=== PATIENT | female | born 1970 | race Caucasian/White ===

== ENCOUNTER 2018-05-27 04:35 | Inpatient (IN) ==
--- NOTE | 2018-05-27 03:24 | Internal Med History&Physical ---
<Guido Julio - Last Filed: 05/27/18 04:48> Internal Medicine - H&P: Meds Dulaglutide [Trulicity] 1.5 mg SQ 05/27/18 [History] Empagliflozin [Jardiance] 25 mg PO DAILY 05/27/18 [History] Ezetimibe/Simvastatin [Vytorin 10-40 mg Tablet] 1 tab PO DAILY 05/27/18 [History] Fenofibrate 160 mg DAILY 05/27/18 [History] Garlic [Daily Garlic Once-A-Day] 400 mg PO BID 05/27/18 [History] Glimepiride [Amaryl] 8 mg PO DAILY 05/27/18 [History] Insulin Glargine,Hum.rec.anlog [Lantus Solostar] 43 unit SQ HS 05/27/18 [History] Metformin HCl [Glucophage Xr] 750 mg PO TID 05/27/18 [History] Mv,Fe,Min/Lutein [A Thru Z Select Women's Tablet] 1 tab PO DAILY 05/27/18 [History] [place]-3/Dha/Epa/Fish Oil [Fish Oil 1,000 mg Softgel] 1 cap PO DAILY 05/27/18 [History] Allergy/AdvReac Type Severity Reaction Status Date / Time No Known Allergies Allergy Verified 05/27/18 02:34 All Systems PM: A 10-system review of systems was performed and is negative for pertinent fi ndings except as documented above in the HPI. - Constitutional Vitals: Temp Pulse Resp BP Pulse Ox 98.5 F 101 18 97/48 94 05/27/18 03:24 05/27/18 03:24 05/27/18 03:24 05/27/18 03:24 05/27/18 03:24 - Assessment and plan (1) Sepsis Current Visit: Yes Status: Acute (2) GAIL (acute kidney injury) Current Visit: Yes Status: Acute (3) Diabetes mellitus Current Visit: Yes Status: Acute (4) Pyelonephritis Current Visit: Yes Status: Acute (5) Left nephrolithiasis Current Visit: Yes Status: Acute (6) DVT prophylaxis Current Visit: Yes Status: Acute - Time Spent With Patient Total time spent is greater than 50% in coordination of care (as documented) at patient's floor/unit and/or counseling patient: - Attending Attestation Silvia Jamaal is a 47 year old woman with diabetes who presents to us on transfer from [facility] where she was taken to with complaint of left flank pain, chills, nausea, vomiting and malaise. There she was found hypotensive with a systolic at 80 with lactate level of 3.9 and WBC of ~17. She required 3L IVF resuscitation which improved her BP and lowered her lactate. CT imaging revealed a 1cm ureteral stone with obstructive hydronephrosis. UA showed 50-100wbc, +LE/nitrite. On my assessment she is laying comfortably in bed stating that she feels better and her pain has subsided. She confirms that the symptoms started about the night before last and progressively worsened. She denies dysuria but noticed her urine is more foul smelling. She acknowledges a history of UTIs but denies prior kidney stones. PMHx: Hyperlipidemia. hx. SHx: Denies smoking and illicit drug use. FHx: DM in mother. Review of systems: All systems reviewed and negative except as listed above in the HPI. Physical exam remarkable for well-developed white female, warm and supple skin, moist mucous membranes, supple neck with no lymphadenopathy, chest clear to auscultation bilaterally with no wheezes, rales or rhonchi, normal S1-S, abdomen non-distended, soft and mildly tender to palpation in the left flank without peritoneal reaction, no c/c/e on extremities, no focal deficits and awake/oriented 3, affect appropriate. Labs and CT report from outside hospital reviewed as noted. She will be admitted for severe sepsis due to urinary tract infection. Repeat comprehensive labs, BCx/UCx. IVF 125ml/hr for now. Upload CT images to radiology. Consult urology. Advise to stop vanc/piptazo started at [facility]. Will place on cefepime for now, going a little broader because of her severe septic presentation and poorly controlled diabetes comorbidity therefore warranting empiric Pseudomonas coverage at least for these initial 24hrs. Narrow accordingly per clinical amelioration and culture results. Insulin sliding scale and check A1C. Heparin Subq. Patient seen and examined by me on 05/27/18. IRISH BERNARDO. <Torie St - Last Filed: 05/27/18 09:19> Date of Encounter: 10/24/18 Time of Encounter: 03:24 Internal Medicine - H&P: HPI Chief complaint: Sepsis secondary to acute UTI and obstructing ureteral stone Admitted From: Hospital to Hospital Transfer History of present illness: Ms. Hinton is a 47 year old female with a history of diabetes mellitus who arrived at [facility] as a transfer from [facility]. She had presented there due to nausea, vomiting, chills, and left-sided pain that had been present since Friday morning. On arrival, she was noted to be hypotensive and received multiple fluid boluses, with some improvement in pressure. Initial workup performed at outside facility revealed multiple laboratory abnormalities, with significant findings as follows: WBC 17.28, creatinine 1.82, glucose 395, calcium 8.2, and lactic acid 3.9. Urinalysis was significant for 30 protein, >=1000 glucose, 50-100 WBCs, positive nitrite, small leukocyte esterase, and few epithelial cells. Patient was started empirically on antibiotic therapy with vancomycin and zosyn. CT abdomen/pelvis demonstrated a 1cm stone in the left ureter with obstructive hydronephrosis. She was transferred to [facility] for urology evaluation and continued management. On examination, patient is resting comfortably in bed and appears to be drifting to sleep. She reports pain that is dull and achy in the middle of her lower back. She rates her discomfort as 2/10 at this time, and says that her discomfort does improve with positional changes. She notes improvement in pain severity since receiving antibiotic therapy and fluid hydration at [facility]. She denies any exacerbating factors. She reports headaches associated with the onset of her pain and a sore throat secondary to repeated vomiting. She denies any dysuria or urinary urgency, but states that she has noticed increased urinary frequency since symptoms began. She denies any other complaints or concerns at this time. Past Med Surg Social Fam HX - Past Medical History Medical history: diabetes, hyperlipidemia, kidney stones Additional medical history: 1 seizure 14 years ago during child , never anymore and not on meds for it Psychiatric history: no psych history - Past Surgical History Surgical History: - Social History Smoking Status: Never smoker Smokeless Tobacco Status: No Alcohol use: none Drug use: none - Family History Mother Adopted: No Age: 74 Living Status: Cause of : 74 Hx Family Cardiac Disorders: (hyperlipdemia, stroke) Hx Family GI Disorders: Yes (perforated bowel) Hx Family Genitourinary Disorders: Yes (kidney failure) Hx Family Endocrine Disorder: Yes (diabetes) Hx Family HEENT Disorders: Yes (glaucoma) Father Adopted: No Living Status: Age at : 60 Hx Family Cardiac Disorders: Yes (cabg) Hx Family Cancer: Yes (skin cancer) All Systems PM: A 10-system review of systems was performed and is negative for pertinent findings except as documented above in the HPI. - Constitutional Vitals: Temp Pulse Resp BP Pulse Ox 98.5 F 105 18 97/48 94 05/27/18 02:39 05/27/18 02:39 05/27/18 02:39 05/27/18 02:39 05/27/18 02:39 Exam: GENERAL: Pleasant adult female lying in bed in no acute distress. She answers questions appropriately and is cooperative with exam. HEENT: Atraumatic and normocephalic. CARDIOVASCULAR: Regular rhythm with elevated heart rate. S1 and S2 present. No m urmurs, gallops, or rubs. RESPIRATORY: CTA bilaterally with no accessory muscle use noted. GASTROINTESTINAL: Active bowel sounds present x 4 quadrants. Abdomen is obese but not distended and soft to palpation. Patient expresses some discomfort with palpation secondary to repeated episodes of emesis. Left CVA tenderness present. EXTREMITIES: No clubbing, cyanosis, or edema present. NEUROLOGIC: A&O x3. No apparent focal deficits. Internal Med - H&P Results - Labs CBC & Chem 7: 05/27/18 04:32 05/27/18 04:32 - Assessment and plan (1) Sepsis Current Visit: Yes Status: Acute Assessment and plan: Patient met sepsis criteria during evaluation at [facility] due to hypotension, elevated WBC count of 17.28, and urinalysis consistent with UTI. She was also noted to have an elevated lactic acid of 3.9. She received extensive fluid hydration prior to transfer, with improvement in blood pressure. Repeat laboratory studies performed after arrival to [facility] demonstrate some improvement, with WBC count of 15.7 and lactic acid of 1.5. Suspect secondary to acute urinary tract infection. Plan is as follows: - Blood cultures - Continue IV fluid hydration at 125mL/hr - Discontinue vancomycin/zosyn - Cefepime 2000mg IVPB Q8H - Continued monitoring of vital signs and clinical status Qualifiers: Sepsis type: sepsis due to unspecified organism Qualified Code(s): A41.9 - Sepsis, unspecified organism (2) UTI (urinary tract infection) Current Visit: Yes Status: Acute Assessment and plan: Urinalysis completed at outside facility is highly suspicious for acute UTI. Considering patient's history of diabetes mellitus that appears to be poorly controlled, plan for antibiotic coverage to include Pseudomonas species. - Repeat urine culture - Cefepime 2000mg Q8H - Further antibiotic deescalation as appropriate pending urine cultures Qualifiers: Urinary tract infection type: acute pyelonephritis Qualified Code(s): N10 - Acute pyelonephritis (3) Left nephrolithiasis Current Visit: Yes Status: Acute (4) Diabetes mellitus Current Visit: Yes Status: Acute Assessment and plan: Patient reports having forgotten her PM insulin yesterday. She reports morning blood glucose readings around 150 on a regular basis. - Accuchecks Q6H while NPO - Low-dose corrective sliding scale insulin - Hemoglobin A1c - Anticipate further modifications to insulin regimen after patient resumes PO diet Qualifiers: Diabetes mellitus type: type 2 Diabetes mellitus buttermaker continuous churn insulin use: unspecified intermediate insulin use status Diabetes mellitus complication status: with unspecified complications Qualified Code(s): E11.8 - Type 2 diabetes mellitus with unspecified complications (5) DVT prophylaxis Current Visit: Yes Status: Acute Assessment and plan: - Heparin 5000units SQ Q8H - Time Spent With Patient Total time spent is greater than 50% in coordination of care (as documented) at patient's floor/unit and/or counseling patient:
[2018-05-27] MEDS: 0.9 % Sodium Chloride 1,000 ML IVC SCH ×3 (04:32→18:18)
[~2018-05-27 04:35] MED LIST: *HR* Dextrose 50 % in Water (Syg) 50 ML SYRINGE IVP PRN; *HR* OxyCODONE Immed Rel 5 MG TABLET PO PRN; Dextrose Gel 15 GM/37.5 ML TUBE PO PRN; Ondansetron ODT 4 MG TAB.RAPDIS SL PRN
[2018-05-27 04:51] LABS: Hematocrit 35.4 % (35.3-44.9); Hemoglobin 11.7 g/dL (11.5-15.4); Mean Corpuscular HGB Conc 33.1 g/dL (31.6-35.5); Mean Corpuscular Hemoglobin 28.3 pg (28.0-33.3); Mean Corpuscular Volume 85.5 fL (83.0-100.0); Platelet Count 172 K/mcL (140-400); Red Blood Count 4.14 M/mcL (3.82-4.97); Red Cell Distribution Width 14.7 % (11.5-14.5)
[2018-05-27 04:57] LABS: INR 1.5; Prothrombin Time 17.4 Seconds (9.4-12.1)
[2018-05-27] MEDS ORDERED: Naloxone 0.4 MG/ML INJ IVP PRN ×2 (04:59→16:33)
[2018-05-27 05:00] LABS: Activated Partial Thrombo Time 30.3 Seconds (26.0-36.0)
[2018-05-27 05:14] LABS: Albumin 3.3 g/dL (3.5-5.7); Albumin/Globulin Ratio 1.2 (1.1-2.2); Bilirubin,Direct 0.2 mg/dL (0.0-0.2); Bilirubin,Indirect 0.2 mg/dL (0.0-1.2); Bilirubin,Total 0.4 mg/dL (0.3-1.0); Calcium 8.5 mg/dL (8.6-10.3); Globulin 2.8 g/dL (2.4-3.5); Magnesium 1.6 mg/dL (1.6-2.6); Total Protein 6.1 g/dL (6.4-8.9)
[2018-05-27 05:16] LABS: Neutrophils # 15.7 K/mcL (1.6-8.9); Platelet Estimate Normal (Normal)
[2018-05-27] MEDS: Insulin LISPRO 300 UNITS/3 ML VIAL SQ SCH ×3 (05:52→18:17)
[2018-05-27] MEDS: *HR* Heparin 5,000 UNIT/ML VIAL SQ SCH ×3 (05:52→20:36)
[2018-05-27 05:53] LABS: Estimated Average Glucose 186 mg/dl; Hemoglobin A1C 8.1 %
[2018-05-27 07:06] LABS: Bilirubin,Urine Negative (Negative); Blood,Urine Moderate (Negative); Clarity,Urine Cloudy (Clear); Color,Urine Yellow (Yellow); Glucose,Urine (UA) >=1000 mg/dL (Normal); Ketones,Urine Trace mg/dL (Negative); Leukocyte Esterase,Urine Small (Negative); Nitrite,Urine Negative (Negative); Protein,Urine 30 mg/dL (Neg-Trace); Specific Gravity,Urine > 1.030 (1.010-1.025); Urobilinogen,Urine Normal (Normal)
[2018-05-27 07:09] LABS: Bacteria,Urine None Seen per hpf (None-Few); Hyaline Casts,Urine Few per lpf (None-Few); RBC,Urine 0-3 per hpf (0-3); Squamous Epithelial Cell,Urine Many per lpf (None-Few); WBC,Urine TNTC per hpf (0-3)
[2018-05-27 07:20] LABS: Yeast,Urine Few per hpf (None Seen)
[2018-05-27 07:23] LABS: VBG Ionized Calcium 0.83 mmol/L (1.15-1.35)
[2018-05-27] MEDS ORDERED: Cefepime HCl 2,000 MG in Water for inj. (sterile) 20 ML 20 ML IVPB SCH (08:00)
[2018-05-27] MEDS: Fenofibrate 54 MG TABLET PO SCH (08:31)
[2018-05-27] MEDS ORDERED: Ketorolac 15 MG/ML VIAL IVP ONE (08:49)
[2018-05-27] MEDS ORDERED: Acetaminophen IV 1,000 MG/100 ML INFUS..BTL IVPB ONE (08:50)
[2018-05-27] MEDS ORDERED: VYTORIN PO SCH (09:00)
--- NOTE | 2018-05-27 09:16 | Urology - Consult Note ---
Date of Encounter: 05/27/18 Time of Encounter: 09:15 - Assessment and Plan (1) Left nephrolithiasis Current Visit: Yes Status: Acute Assessment and plan: Urgency of situation and setting of obstructing stone. Plan: Urgent urinary diversion via stent placement (2) Pyelonephritis Current Visit: Yes Status: Acute Assessment and plan: Test need for urinary diversion in setting of obstructing stone. Plan: Urology CN:HPI Consult date: 05/27/18 Reason for consult Urology: Hydronephrosis Requesting physician: Evin Obrien History of present illness: Very pleasant 47-year-old lady witha past urologic history. The patient had a 36 hour onset of intermittent left flank pain becoming severe over the last 12 hours. Patient presented to an outside emergency department last evening where CT is reported to show a 1 cm obstructing left ureteral calculus with hydronephrosis. Of most concern is patient has been diagnosed with an active UTI. At this point time she is nontoxic she is slightly tachycardic without fevers. Patient denies exacerbating or remitting factors. Her pain is left- sided. Pain is constant with waxing and waning intensity. Patient denies gross hematuria. Past Med Surg Social Fam HX - Past Medical History Medical history: diabetes, hyperlipidemia, kidney stones Additional medical history: 1 seizure 14 years ago during child , never anymore and not on meds for it Psychiatric history: no psych history - Past Surgical History Surgical History: - Social History Smoking Status: Never smoker Smokeless Tobacco Status: No Alcohol use: none Drug use: none - Family History Mother Adopted: No Age: 74 Living Status: Cause of : 74 Hx Family Cardiac Disorders: (hyperlipdemia, stroke) Hx Family GI Disorders: Yes (perforated bowel) Hx Family Genitourinary Disorders: Yes (kidney failure) Hx Family Endocrine Disorder: Yes (diabetes) Hx Family HEENT Disorders: Yes (glaucoma) Father Adopted: No Living Status: Age at : 60 Hx Family Cardiac Disorders: Yes (cabg) Hx Family Cancer: Yes (skin cancer) Medications and Allergies Dulaglutide [Trulicity] 1.5 mg SQ QWEEK 05/27/18 [History] Empagliflozin [Jardiance] 25 mg PO DAILY 05/27/18 [History] Ezetimibe/Simvastatin [Vytorin 10-40 mg Tablet] 1 tab PO DAILY 05/27/18 [History] Fenofibrate 160 mg DAILY 05/27/18 [History] Garlic [Daily Garlic Once-A-Day] 400 mg PO BID 05/27/18 [History] Glimepiride [Amaryl] 8 mg PO DAILY 05/27/18 [History] Insulin Glargine,Hum.rec.anlog [Lantus Solostar] 43 unit SQ HS 05/27/18 [History] Metformin HCl [Glucophage Xr] 750 mg PO TID 05/27/18 [History] Mv,Fe,Min/Lutein [A Thru Z Select Women's Tablet] 1 tab PO DAILY 05/27/18 [History] [place]-3/Dha/Epa/Fish Oil [Fish Oil 1,000 mg Softgel] 1 cap PO DAILY 05/27/18 [History] Allergy/AdvReac Type Severity Reaction Status Date / Time No Known Allergies Allergy Verified 05/27/18 02:34 Review of Systems - Constitutional no chills, no fever(s) - EENT Nose, mouth and throat: no dizziness, no sore throat - Cardiovascular no chest pain - Respiratory no cough - Gastrointestinal abdominal pain, no vomiting - Genitourinary Genitourinary: flank pain, no dysuria - Musculoskeletal no muscle weakness, no numbness - Integumentary no lesions, no rash - Neurological no confusion - Psychiatric no anxiety - Hematologic/Lymphatic no easy bleeding, no easy bruising - Allergic/Immunologic no throat swelling Exam Initial Vital Signs Temp Pulse Resp BP Pulse Ox 98.5 F 105 18 97/48 94 05/27/18 02:39 05/27/18 02:39 05/27/18 02:39 05/27/18 02:39 05/27/18 02:39 - General physical appearance Present: well developed, well nourished - Eyes Present: normal ocular movement - ENT Present: normal nares, normal mucosa - Neck Present: no masses, trachea midline - Respiratory Present: normal respiratory effort - Cardiovascular Cardiovascular exam IM: RRR - Integumentary Present: no rash, no growths - Neurologic Present: normal coordination - Musculoskeletal Present: normal gait Urology Results - Labs 05/27/18 04:32 05/27/18 04:32 Abnormal lab results WBC 15.7 K/mcL (4.3-11.1) H 05/27/18 04:32 RDW 14.7 % (11.5-14.5) H 05/27/18 04:32 Band Neutrophils % 44.0 % (0-4) H 05/27/18 04:32 Neutrophils # 15.7 K/mcL (1.6-8.9) H 05/27/18 04:32 PT 17.4 Seconds (9.4-12.1) H 05/27/18 04:32 Carbon Dioxide 20 mEq/L (23-29) L 05/27/18 04:32 BUN 22 mg/dL (6-20) H 05/27/18 04:32 Est GFR ( Amer) 58 (> 60) L 05/27/18 04:32 Est GFR (Non-Af Amer) 48 (> 60) L 05/27/18 04:32 Glucose 292 mg/dL (70-105) H 05/27/18 04:32 Hemoglobin A1c 8.1 % (-5.6) H 05/27/18 04:32 Calcium 8.5 mg/dL (8.6-10.3) L 05/27/18 04:32 Venous Ioniz Calcium 0.83 mmol/L (1.15-1.35) L 05/27/18 07:20 Serum Total Protein 6.1 g/dL (6.4-8.9) L 05/27/18 04:32 Albumin 3.3 g/dL (3.5-5.7) L 05/27/18 04:32 Urine Clarity Cloudy (Clear) A 05/27/18 06:50 Ur Specific [place] > 1.030 (1.010-1.025) H 05/27/18 06:50 Urine Protein 30 mg/dL (Neg-Trace) H 05/27/18 06:50 Urine Glucose (UA) >=1000 mg/dL (Normal) H 05/27/18 06:50 Urine Ketones Trace mg/dL (Negative) H 05/27/18 06:50 Urine Blood Moderate (Negative) H 05/27/18 06:50 Ur Leukocyte Esterase Small (Negative) H 05/27/18 06:50 Urine Microscopic WBC TNTC per hpf (0-3) H 05/27/18 06:50 Ur Squamous Epith Cells Many per lpf (None-Few) H 05/27/18 06:50 Urine Yeast Few per hpf (None Seen) H 05/27/18 06:50 Diabetes panel 05/27/18 05/27/18 Range/Units 04:32 04:32 Sodium 137 (136-145) mEq/L Potassium 4.0 (3.5-5.1) mEq/L Chloride 106 (98-107) mEq/L Carbon Dioxide 20 L (23-29) mEq/L BUN 22 H (6-20) mg/dL Creatinine 1.20 (0.60-1.20) mg/dL Glucose 292 H (70-105) mg/dL Hemoglobin A1c 8.1 H ( - 5.6) % Calcium 8.5 L (8.6-10.3) mg/dL AST 33 (13-39) Units/L ALT 19 (7-52) Units/L Alkaline Phosphatase 37 (34-104) Units/L Albumin 3.3 L (3.5-5.7) g/dL Calcium panel 05/27/18 Range/Units 04:32 Calcium 8.5 L (8.6-10.3) mg/dL Albumin 3.3 L (3.5-5.7) g/dL Pituitary panel 05/27/18 Range/Units 04:32 Sodium 137 (136-145) mEq/L Potassium 4.0 (3.5-5.1) mEq/L Chloride 106 (98-107) mEq/L Carbon Dioxide 20 L (23-29) mEq/L BUN 22 H (6-20) mg/dL Creatinine 1.20 (0.60-1.20) mg/dL Glucose 292 H (70-105) mg/dL Calcium 8.5 L (8.6-10.3) mg/dL Adrenal panel 05/27/18 Range/Units 04:32 Sodium 137 (136-145) mEq/L Potassium 4.0 (3.5-5.1) mEq/L Chloride 106 (98-107) mEq/L Carbon Dioxide 20 L (23-29) mEq/L BUN 22 H (6-20) mg/dL Creatinine 1.20 (0.60-1.20) mg/dL Glucose 292 H (70-105) mg/dL Calcium 8.5 L (8.6-10.3) mg/dL Total Bilirubin 0.4 (0.3-1.0) mg/dL AST 33 (13-39) Units/L ALT 19 (7-52) Units/L Alkaline Phosphatase 37 (34-104) Units/L Albumin 3.3 L (3.5-5.7) g/dL All other labs normal. Consult Discharge Plan - Plan Referrals: Phoebe Brown, [employer]IC[employer] IN[employer]MENT SALES ASSISTANT [Primary Care Provider] -
[2018-05-27] MEDS ORDERED: 0.9 % Sodium Chloride 500 ML IVC PRN (12:01)
--- NOTE | 2018-05-27 12:04 | Event Note ---
Date of Encounter: 05/27/18 Time of Encounter: 10:20 H&P reviewed. 47-year-old female with history of diabetes is admitted for severe sepsis secondary to pyelonephritis and L hydronephrosis in the setting of 1cm ureteric stone. Initially presented with hypotension and lactic acidosis which have since improved after 3 L of IV fluid. Continue broad-spectrum antibiotics, maintenance IV fluids, when necessary bolus of normal saline for hypotension, and follow-up with urology's recommendation regarding obstructive nephropathy. Continue low-dose sliding scale coverage every 6 while nothing by mouth.
[2018-05-27] MEDS ORDERED: Acetaminophen 325 MG TABLET PO PRN (12:05)
[2018-05-27] MEDS ORDERED: *HR* FentaNYL (PF) 100 MCG/2 ML VIAL ONE ×2 (15:39→16:19)
[2018-05-27] MEDS ORDERED: *HR* Propofol 200 MG/20 ML VIAL IVP ONE (15:39)
[2018-05-27] MEDS ORDERED: *HR* Midazolam HCl 2 MG/2 ML VIAL ONE (15:39)
[2018-05-27] MEDS ORDERED: Ondansetron 4 MG/2 ML VIAL ONE (15:41)
[2018-05-27] MEDS ORDERED: Lidocaine -MPF 2% 2 ML VIAL ONE (15:41)
[2018-05-27] MEDS ORDERED: Dexamethasone 4 MG/ML VIAL ONE (15:41)
[2018-05-27] MEDS ORDERED: Scopolamine Patch 1.5 MG PATCH.TD72 ONE (16:03)
--- NOTE | 2018-05-27 16:07 | Anesthesia Evaluation PreOp ---
Date of Encounter: 05/27/18 Time of Encounter: 16:05 - Past History Planned Operation: Left retrograde stent/ L USE, cyso Cardiac History: HTN Pulmonary History: Denies Any Significant HX STAFF NURSE ICU RESOURCE TEAM History: Seizures (once during childbirth, none since) Other Medical History: Renal (stones), Diabetes Type II (insulin) Anesthesia History: Problems (PONV) Alcohol Use: none Drug use: none Medications and Allergies Dulaglutide [Trulicity] 1.5 mg SQ QWEEK 05/27/18 [History] Empagliflozin [Jardiance] 25 mg PO DAILY 05/27/18 [History] Ezetimibe/Simvastatin [Vytorin 10-40 mg Tablet] 1 tab PO DAILY 05/27/18 [History] Fenofibrate 160 mg DAILY 05/27/18 [History] Garlic [Daily Garlic Once-A-Day] 400 mg PO BID 05/27/18 [History] Glimepiride [Amaryl] 8 mg PO DAILY 05/27/18 [History] Insulin Glargine,Hum.rec.anlog [Lantus Solostar] 43 unit SQ HS 05/27/18 [History] Metformin HCl [Glucophage Xr] 750 mg PO TID 05/27/18 [History] Mv,Fe,Min/Lutein [A Thru Z Select Women's Tablet] 1 tab PO DAILY 05/27/18 [History] [place]-3/Dha/Epa/Fish Oil [Fish Oil 1,000 mg Softgel] 1 cap PO DAILY 05/27/18 [H istory] Allergy/AdvReac Type Severity Reaction Status Date / Time No Known Allergies Allergy Verified 05/27/18 02:34 - Meds/Allergy Pre-op Review Medications Reviewed: Yes Allergies Reviewed: Yes Beta Blockers on Current Med List: No Anesthesia Results - Labs 05/27/18 04:32 05/27/18 04:32 Anesthesia Exam Last Vital Signs Temp 98.1 F 05/27/18 14:05 Pulse 106 05/27/18 14:05 Resp 18 05/27/18 14:05 BP 98/62 05/27/18 14:05 Pulse Ox 94 05/27/18 14:05 Weight: 98 kg NPO (# of Hours): > 8 hrs - HEENT Pupil (Motor): Pupils equal, EOMI Mallampati: III Teeth: Normal Oral Opening: Greater than 3 - STAFF NURSE ICU RESOURCE TEAM LOC: Oriented - Cardiac Rhythm: Regular Murmur: None - Pulmonary Breath Sounds: bilateral Clear Respiratory Effort: Symmetrical Anesthesia Assess/Plan ASA Score: 3, E Modified [place] Scale for Level of Consciousness: Cooperative, oriented, and tranquil Anesthetic Plan: General, Precautions (etomidate, careful titration of anesthesia (patient septic)) Monitoring Plan: Standard Monitors Recovery Plan: PACU
[2018-05-27] MEDS ORDERED: *HR* Etomidate 40 MG/20 ML VIAL IVP ONE (16:08)
[2018-05-27] MEDS ORDERED: Isovue-300 30 ML VIAL ONE (16:20)
[2018-05-27] MEDS ORDERED: *HR* Promethazine 25 MG/ML VIAL IVP PRN (16:33)
[2018-05-27] MEDS ORDERED: Albuterol 2.5 MG/3 ML NEBULIZER IH ONE (16:33)
[2018-05-27] MEDS ORDERED: *HR* HYDROmorphone (PF) 1 MG/ML SYRINGE IVP PRN (16:33)
[2018-05-27] MEDS ORDERED: *HR* Meperidine 25 MG/ML SYRINGE IVP PRN (16:33)
[2018-05-27] MEDS ORDERED: Ondansetron 4 MG/2 ML VIAL IVP ONE (16:33)
--- NOTE | 2018-05-27 16:44 | Operative Note ---
Date of procedure: 05/27/18 Pre-op diagnosis: left ureteral calculus, hydronephrosis, sepsis Post-op diagnosis: same Procedure: Cystoscopy, left retrograde ureteral pyelography, left double-J stent placement, intraoperative interpretation of all radiographic images by surgeon in real time to facilitate procedure Implants: Left double-J ureteral stent Anesthesia: GETA Surgeon: Jitendra Lovell Was there an assistant food service manager present: No Estimated blood loss (cc): 0 Specimen: none Condition: stable Disposition: PACU Procedure in Detail: Mrs. Hinton is very pleasant 47-year-old lady with no significant past urologic history. She is transferred last night from an outside facility with what is reported to be an obstructing left ureteral catheter was 1 cm in the setting of active infection. The patient is developing signs of sepsis. I reviewed her intake and internal medicine notes. She stated have obstructing left ureteral catheter was with hydronephrosis. The patient confirms this finding. There are no films available for review. Patient is tachycardic however her blood pressure is stable. Cultures were sent. Urine is grossly positive. She reports chills. Patient reports abdominal pain. She denies exacerbating or remitting factors. Pain is constant with waxing waning intensity. Pain is located abdomen and left side. After discussions with alternatives patient went for surgical address as detailed below. The patient was brought to the operating theater and placed on table in supine position. She was identified by name date of and administered a general anesthetic.. Patient was placed in dorsal lithotomy prepped and draped in normal sterile fashion. The cystoscope inserted into the urethral meatus and advanced with the bladder under direct visualization. There was cloudy urine. The left ureteral orifices were easily identified. A cone-tipped catheter was placed in the left ureter and with gentle injection of contrast a left retrograde ureteropyelogram was performed. This showed no definitive filling defect however there was some fullness in the left proximal ureter ureter and mild to moderate left hydronephrosis above this level. A Glidewire was advanced into the left renal pelvis. Over the Glidewire a 6 x 24 left double-J stent was advanced. Once the stent was felt to be in good position the Glidewire was removed and good curls of the stent were noted proximally and distally under fluoroscopy. All instruments were removed from the patient's bladder. This ended the operative procedure. There are no complications.
[2018-05-27] MEDS ORDERED: Ringers Solution, Lactated 1,000 ML IVC SCH (16:45)
--- NOTE | 2018-05-27 17:12 | Anesthesia Evaluation Post Op ---
Date of Encounter: 05/27/18 Time of Encounter: 17:11 - Vital Signs Vital Signs: Vital Signs/O2 Sat/Glucose, Most Current Temp Pulse Resp BP Pulse Ox 05/27/18 17:02 109 22 99/65 92 05/27/18 16:52 106 20 91/56 95 05/27/18 16:42 100.1 F H 105 20 91/53 94 05/27/18 14:05 98.1 F 106 18 98/62 94 - Lungs Lungs: Clear Ascult./Percussion - Airway Airway: Non-obstructed - Cardiovascular Regular Rate, Baseline Rhythm - Mental Status Mental Status: Alert & Oriented, Answers Appropriately - Pain Pain Scale: 4 Pain Scale used: Numeric (1 - 10) - Nausea Vomiting Nausea Vomiting: Not Present - Hydration Hydration: Ice chips, Has not voided - Discharge PostOp Status: Transfer Patient to floor
[2018-05-27 17:20] LABS: Acinetobacter baumannii by PCR Not Detected (Not Detect); Candida albicans by PCR Not Detected (Not Detect); Candida glabrata by PCR Not Detected (Not Detect); Candida krusei by PCR Not Detected (Not Detect); Candida parapsilosis by PCR Not Detected (Not Detect); Candida tropicalis by PCR Not Detected (Not Detect); Enterobacter cloacae Cmplx PCR Not Detected (Not Detect); Enterobacteriaceae by PCR DETECTED (Not Detect); Enterococcus by PCR Not Detected (Not Detect); Escherichia coli by PCR DETECTED (Not Detect); Klebsiella oxytoca by PCR Not Detected (Not Detect); Klebsiella pneumoniae by PCR Not Detected (Not Detect); Proteus by PCR Not Detected (Not Detect); Pseudomonas aeruginosa by PCR Not Detected (Not Detect); Serratia marcescens by PCR Not Detected (Not Detect); Staphylococcus aureus by PCR Not Detected (Not Detect); Staphylococcus by PCR Not Detected (Not Detect); Streptococcus agalactiae(B)PCR Not Detected (Not Detect); Streptococcus by PCR Not Detected (Not Detect); Streptococcus pneumoniae PCR Not Detected (Not Detect); Streptococcus pyogenes (A) PCR Not Detected (Not Detect); blaKPC Carbapenem-Resist Gene Not Detected (Not Detect); mecA Methicillin-Resist Gene Not Detected (Not Detect); vanA/B Vancomycin-Resist Genes Not Detected (Not Detect)
[2018-05-27] MEDS: Cefepime HCl 2,000 MG in Water for inj. (sterile) 20 ML 20 ML IVPB SCH (20:34)
[2018-05-27] MEDS ORDERED: Insulin DETEMIR 100 UNIT/ML X5UNITS SQ SCH (21:00)
[2018-05-28] MEDS ORDERED: Insulin DETEMIR 100 UNIT/ML X5UNITS SQ ONE (00:20)
[2018-05-28] MEDS: 0.9 % Sodium Chloride 1,000 ML IVC SCH (02:46)
[2018-05-28 04:39] LABS: Hematocrit 33.2 % (35.3-44.9); Hemoglobin 10.6 g/dL (11.5-15.4); Mean Corpuscular HGB Conc 31.9 g/dL (31.6-35.5); Mean Corpuscular Hemoglobin 28.1 pg (28.0-33.3); Mean Corpuscular Volume 88.1 fL (83.0-100.0); Mean Platelet Volume 10.4 fL (9.4-12.4); Platelet Count 113 K/mcL (140-400); Red Blood Count 3.77 M/mcL (3.82-4.97); Red Cell Distribution Width 15.2 % (11.5-14.5)
[2018-05-28 04:54] LABS: Calcium 8.8 mg/dL (8.6-10.3); Potassium 4.5 mEq/L (3.5-5.1)
[2018-05-28 05:47] LABS: Lymphocytes # 0.6 K/mcL (0.6-4.6); Monocytes # 0.4 K/mcL (0.0-1.3); Neutrophils # 9.1 K/mcL (1.6-8.9); Platelet Estimate Slight Decrease (Normal)
[2018-05-28] MEDS: *HR* Heparin 5,000 UNIT/ML VIAL SQ SCH ×3 (06:51→20:03)
[2018-05-28] MEDS ORDERED: Insulin LISPRO 300 UNITS/3 ML VIAL SQ SCH ×2 (07:30→21:00)
[2018-05-28] MEDS: Cefepime HCl 2,000 MG in Water for inj. (sterile) 20 ML 20 ML IVPB SCH ×2 (08:45→20:03)
[2018-05-28] MEDS: Fenofibrate 54 MG TABLET PO SCH (08:45)
[2018-05-28] MEDS: Insulin LISPRO 300 UNITS/3 ML VIAL SQ SCH ×3 (08:48→17:28)
[2018-05-28] MEDS: Ipratropium/Albuterol Neb 3 ML IH SCH ×3 (10:45→21:54)
--- NOTE | 2018-05-28 10:56 | Internal Med Progress Note ---
Hospitalist Progress Note - Encounter Date of Encounter: 05/28/18 Time of Encounter: 09:50 - Subjective Interval History: Feels significant better after the procedure yesterday. No longer tachycardic. Left flank pain improving. Denies any nausea/vomiting, fever/chills, or dysuria. - Exam Vitals: Temp Pulse Resp BP Pulse Ox 97.9 F 77 16 122/88 94 05/28/18 07:05 05/28/18 07:05 05/28/18 07:05 05/28/18 07:05 05/28/18 07:05 Exam: General: Alert and oriented, not in acute distress. Cardiovascular:Normal S1 & S2, No JVD. Pulse regular. Lungs: clear to auscultation, no wheezes/rales Abdomen:Soft, non-tender, no rigidity. Minimal L CVA tenderness Extremities:No deformity or swelling Neurological:Normal cognition and motor skills. Non-focal - Assessment and Plan (1) Sepsis Current Visit: Yes Status: Acute Assessment and Plan: likely due to L pyelonephritis due to obstructive uropathy and E coli bactermia s/p L double J stent placement yesterday uneventfully by Urology Improving on IV Cefepime, continue for now follow up on bld and urine cultures Cr unchanged, continue IVF (2) Diabetes mellitus Current Visit: Yes Status: Chronic Assessment and Plan: on Dulaglutide, Amaryl, metformin, and jardiance at home. Hold off on OHGAs started on levemir 16U at HS with low dose sliding scale but BGMs continue to be elevated (despite additional dose of 10U of levemir overnight) will increase levemir to 30U at HS and moderate sliding scale coverage Accuchecks AC+HS, ADA diet (3) Left nephrolithiasis Current Visit: Yes Status: Acute Assessment and Plan: s/p stent insertion per Urology (4) UTI (urinary tract infection) Current Visit: Yes Status: Acute Assessment and Plan: abx as above (5) DVT prophylaxis Current Visit: Yes Status: Acute Assessment and Plan: Heparin 5000units SQ Q8H - Time Spent with Patient Total time spent is greater than 50% in coordination of care (as documented) at patient's floor/unit and/or counseling patient: Plan of Care Discussed with: patient Internal Medicine: Result - Labs CBC & Chem 7: 05/28/18 04:24 05/28/18 04:24 Labs: Short CBC 05/28/18 Range/Units 04:24 WBC 10.1 (4.3-11.1) K/mcL Hgb 10.6 L (11.5-15.4) g/dL Hct 33.2 L (35.3-44.9) % Plt Count 113 L (140-400) K/mcL Neutrophils # 9.1 H (1.6-8.9) K/mcL BMP 05/28/18 04:24 Sodium 135 L Potassium 4.5 Chloride 108 H Carbon Dioxide 18 L BUN 32 H Creatinine 1.17 Glucose 310 H Calcium 8.8 - ABG Interpretation ABG results: PT/INR, D-dimer PT 17.4 Seconds (9.4-12.1) H 05/27/18 04:32 - Impressions Impressions Retrograde Pyelogram 05/27/18 16:27 IMPRESSION: Intraprocedural fluoroscopic spot images as above. See separate procedure report for more information. D/ / Braden Torres MD / Braden Torres MD Interpreting Provider: Braden Torres MD Consult Discharge Plan - Plan Referrals: Phoebe Brown, [employer] APPRENTICE [Primary Care Provider] - 06/05/18 11:00 am (1) Sepsis Qualifiers: Sepsis type: Escherichia coli Qualified Code(s): A41.51 - Sepsis due to Esche richia coli [E. coli] (2) Diabetes mellitus Qualifiers: Diabetes mellitus type: type 2 Diabetes mellitus detention insulin use: unspecified detention insulin use status Diabetes mellitus complication status: with unspecified complications Qualified Code(s): E11.8 - Type 2 diabetes mellitus with unspecified complications (4) UTI (urinary tract infection) Qualifiers: Urinary tract infection type: acute pyelonephritis Qualified Code(s): N10 - Acute pyelonephritis
--- NOTE | 2018-05-28 10:57 | Urology Progress Note ---
Date of Encounter: 05/28/18 Time of Encounter: 10:45 - Assessment and Plan (1) Left nephrolithiasis Current Visit: Yes Status: Acute Assessment and plan: Patient condition much improved subjectively and objectively post stent rhoda cement last evening for obstructing stone in the setting of active infection with developing sepsis. Tachycardia resolved. Blood pressure stabilized. Plan: My office will arrange for outpatient follow-up in 1-2 weeks with [facility]. Definitive stone address will be planned at follow-up visit. Home on culture specific oral antibiotics (2) Pyelonephritis Current Visit: Yes Status: Acute Assessment and plan: Limited blood cultures are positive. Obstructive urinary tract diverted via stent placement in OR yesterday. Plan: Home on culture specific oral antibiotics per primary service. My office will arrange outpatient urologic follow-up. Progress Note Subjective: feels better, afebrile Objective Initial Vital Signs Temp Pulse Resp BP Pulse Ox 98.5 F 105 18 97/48 94 05/27/18 02:39 05/27/18 02:39 05/27/18 02:39 05/27/18 02:39 05/27/18 02:39 - General physical appearance Present: no distress - Respiratory Present: normal respiratory effort - Abdomen Absent: guarding, distended - Integumentary Present: no rash, no abnormal pigmentation - Musculoskeletal Present: normal gait, normal posture - Labs 05/28/18 04:24 05/28/18 04:24 Diabetes panel 05/28/18 Range/Units 04:24 Sodium 135 L (136-145) mEq/L Potassium 4.5 (3.5-5.1) mEq/L Chloride 108 H (98-107) mEq/L Carbon Dioxide 18 L (23-29) mEq/L BUN 32 H (6-20) mg/dL Creatinine 1.17 (0.60-1.20) mg/dL Glucose 310 H (70-105) mg/dL Calcium 8.8 (8.6-10.3) mg/dL Calcium panel 05/28/18 Range/Units 04:24 Calcium 8.8 (8.6-10.3) mg/dL Pituitary panel 05/28/18 Range/Units 04:24 Sodium 135 L (136-145) mEq/L Potassium 4.5 (3.5-5.1) mEq/L Chloride 108 H (98-107) mEq/L Carbon Dioxide 18 L (23-29) mEq/L BUN 32 H (6-20) mg/dL Creatinine 1.17 (0.60-1.20) mg/dL Glucose 310 H (70-105) mg/dL Calcium 8.8 (8.6-10.3) mg/dL Adrenal panel 05/28/18 Range/Units 04:24 Sodium 135 L (136-145) mEq/L Potassium 4.5 (3.5-5.1) mEq/L Chloride 108 H (98-107) mEq/L Carbon Dioxide 18 L (23-29) mEq/L BUN 32 H (6-20) mg/dL Creatinine 1.17 (0.60-1.20) mg/dL Glucose 310 H (70-105) mg/dL Calcium 8.8 (8.6-10.3) mg/dL Consult Discharge Plan - Plan Referrals: Phoebe Brown CNP [Primary Care Provider] - 06/05/18 11:00 am
[2018-05-28] MEDS ORDERED: Insulin DETEMIR 100 UNIT/ML X5UNITS SQ SCH (21:00)
[2018-05-29] MEDS: Ipratropium/Albuterol Neb 3 ML IH SCH ×2 (03:53→09:48)
[2018-05-29] MEDS: *HR* Heparin 5,000 UNIT/ML VIAL SQ SCH (05:53)
[2018-05-29 06:24] LABS: Basophils % 0.1 %; Eosinophils % 0.4 %; Hematocrit 31.9 % (35.3-44.9); Hemoglobin 10.6 g/dL (11.5-15.4); Immature Granulocytes % 0.6 % (0-4); Lymphocytes # 0.5 K/mcL (0.6-4.6); Lymphocytes % 6.1 %; Mean Corpuscular HGB Conc 33.2 g/dL (31.6-35.5); Mean Corpuscular Hemoglobin 28.3 pg (28.0-33.3); Mean Corpuscular Volume 85.3 fL (83.0-100.0); Mean Platelet Volume 10.5 fL (9.4-12.4); Monocytes # 0.5 K/mcL (0.0-1.3); Monocytes % 5.5 %; Neutrophils # 7.4 K/mcL (1.6-8.9); Platelet Count 185 K/mcL (140-400); Red Blood Count 3.74 M/mcL (3.82-4.97); Red Cell Distribution Width 14.8 % (11.5-14.5); Segmented Neutrophils % 87.3 %
[2018-05-29 06:37] LABS: BUN/Creatinine Ratio 31 (6-26); Blood Urea Nitrogen 34 mg/dL (6-20); Calcium 8.5 mg/dL (8.6-10.3); Carbon Dioxide 21 mEq/L (23-29); Chloride 105 mEq/L (98-107); Glucose 205 mg/dL (70-105); Magnesium 1.8 mg/dL (1.6-2.6); Osmolality,Calculated 294 (280-300); Potassium 3.5 mEq/L (3.5-5.1); Sodium 135 mEq/L (136-145); eGFR For Non-African Americans 54 (> 60)
[2018-05-29 06:50] VITALS: BP 123/74
[2018-05-29] MEDS: 0.9 % Sodium Chloride 1,000 ML IVC SCH (06:54)
[2018-05-29] MEDS: Insulin LISPRO 300 UNITS/3 ML VIAL SQ SCH (08:14)
[2018-05-29] MEDS: Cefepime HCl 2,000 MG in Water for inj. (sterile) 20 ML 20 ML IVPB SCH (08:15)
[2018-05-29] MEDS: Fenofibrate 54 MG TABLET PO SCH (08:16)
--- NOTE | 2018-05-29 10:33 | Discharge Summary ---
- NOTES TO OUTPATIENT PROVIDER Notes to Outpatient Provider: Patient was admitted for sepsis secondary to left pyelonephritis/hydronephrosis and Escherichia coli bacteremia. Underwent left ureteric stent insertion on 05/27. Completed 3 days of IV cefepime and will be discharged on 10 day course of Omnicef. She will also need to follow up with Urology in 1-2 weeks with [facility]; to be arranged by Urology's office. Orders not resulted at time of discharge: Pending orders 05/27/18 04:22 Culture,Blood [BC] AM 0400 05/27/18 06:50 Culture,Urine [RM] Stat 05/29/18 05:53 Culture,Blood [BC] AM 0400 Date of Encounter: 05/29/18 Time of Encounter: 08:15 - Discharge Diagnosis (1) Sepsis Priority: Primary Status: Acute Qualifiers: Sepsis type: Escherichia coli Qualified Code(s): A41.51 - Sepsis due to Escherichia coli [E. coli] (2) Diabetes mellitus Priority: Secondary Status: Chronic Qualifiers: Diabetes mellitus type: type 2 Diabetes mellitus terminal supervisor insulin use: unspecified assisted insulin use status Diabetes mellitus complication status: with unspecified complications Qualified Code(s): E11.8 - Type 2 diabetes mellitus with unspecified complications (3) Left nephrolithiasis Priority: Secondary Status: Acute (4) UTI (urinary tract infection) Priority: Secondary Status: Acute Qualifiers: Urinary tract infection type: acute pyelonephritis Qualified Code(s): N10 - Acute pyelonephritis (5) DVT prophylaxis Priority: Secondary Status: Acute Hospital course: Ms. Hinton is a 47 year old female with PMHx of DM was admitted for sepsis secondary to left pyelonephritis/hydronephrosis and Escherichia coli bacteremia. Underwent left ureteric stent insertion on 05/27. Completed 3 days of IV cefepime and will be discharged on 10 day course of Omnicef. She will also need to follow up with Urology in 1-2 weeks with [facility]; to be arranged by Urology's office. Discharge discussed with: patient, nurse, other (Microbiology lab) - Time Spent with Patient Total time spent providing and/or coordinating discharge services: 32mins - Discharge Medications Prescriptions: Ondansetron ODT [Zofran ODT] 4 mg SL Q6HR PRN #10 tab.rapdis PRN Reason: Vomiting Cefdinir [Omnicef] 300 mg PO BID 10 Days #20 capsule Home Medications: Dulaglutide [Trulicity] 1.5 mg SQ QWEEK 05/27/18 [History] Empagliflozin [Jardiance] 25 mg PO DAILY 05/27/18 [History] Ezetimibe/Simvastatin [Vytorin 10-40 mg Tablet] 1 tab PO DAILY 05/27/18 [History] Fenofibrate 160 mg DAILY 05/27/18 [History] Garlic [Daily Garlic Once-A-Day] 400 mg PO BID 05/27/18 [History] Glimepiride [Amaryl] 8 mg PO DAILY 05/27/18 [History] Insulin Glargine,Hum.rec.anlog [Lantus Solostar] 43 unit SQ HS 05/27/18 [History] Metformin HCl [Glucophage Xr] 750 mg PO TID 05/27/18 [History] Mv,Fe,Min/Lutein [A Thru Z [employer] Tablet] 1 tab PO DAILY 05/27/18 [History] [place]-3/Dha/Epa/Fish Oil [Fish Oil 1,000 mg Softgel] 1 cap PO DAILY 05/27/18 [History] Cefdinir [Omnicef] 300 mg PO BID 10 Days #20 capsule 05/29/18 [Rx] Ondansetron ODT [Zofran ODT] 4 mg SL Q6HR PRN #10 tab.rapdis 05/29/18 [Rx] Allergies/Adverse Reactions: Allergy/AdvReac Type Severity Reaction Status Date / Time No Known Allergies Allergy Verified 05/27/18 02:34 Date of admission: 05/27/18 04:35 Primary care physician: Phoebe Brown CNP Consults: 05/27/18 03:33 Consult to Urology [CONS] Routine Consulting Provider: [facility] [place] Reason for Consult: Transferred from [facility] for 1cm ureterolithiasis in severe sepsis Call Completed: Yes - Constitutional Vitals: Temp Pulse Resp BP Pulse Ox 97.8 F 87 18 123/74 94 05/29/18 06:46 05/29/18 06:46 05/29/18 09:49 05/29/18 06:46 05/29/18 09:49 Exam: General: Alert and oriented, not in acute distress. Cardiovascular:Normal S1 & S2, No JVD. Pulse regular. Lungs: clear to auscultation, no wheezes/rales Abdomen:Soft, non-tender, no rigidity. Extremities:No deformity or swelling Neurological:Normal cognition and motor skills. Non-focal - Patient Status Disposition: Home, Self-Care Condition: Good Functional capacity at discharge: independent ambulation Overall status at discharge: patient is progressing back to baseline - Discharge Instructions Instructions: Urinary Tract Infection in Women (DC), Sepsis (DC), Diabetes Mellitus Type 2 in Adults (DC) Follow Up With: Phoebe Brown CNP [Primary Care Provider] - 06/05/18 11:00 am Jitendra Lovell [Partnered Physician] - - Diet and Activity Activity: resume usual activities as tolerated Diet: diabetic diet
[2018-05-29] MEDS ORDERED: FLU VAC QV 2018(18YR UP)RCM/PF 0.5 ML SYRINGE IM ONE (11:09)
== END 2018-05-29 12:55 | disposition home or self-care (01) | DRG 854 ==
LOC: 2NNU → SUATTDRO 04:35 → 3ANU 05-28 11:17
PROVIDERS: ADMIT Internal Medicine; ATTEND Internal Medicine

== ENCOUNTER 2022-01-13 04:57 | Observation (INO) ==
[2022-01-13] MEDS ORDERED: Ketorolac 30 MG/ML VIAL IVP ONE (05:27)
[2022-01-13] MEDS ORDERED: Ondansetron 4 MG/2 ML VIAL IVP ONE (05:27)
[2022-01-13] MEDS ORDERED: 0.9 % Sodium Chloride 1,000 ML IVC ONE (05:27)
[2022-01-13 05:52] LABS: Bacteria,Urine Few per hpf (None-Few); Bilirubin,Urine Negative (Negative); Blood,Urine Small (Negative); Clarity,Urine Clear (Clear); Color,Urine Colorless (Yellow); Glucose,Urine (UA) >=1000 mg/dL (Normal); Ketones,Urine 10 mg/dL (Negative); Leukocyte Esterase,Urine Negative (Negative); Mucus,Urine Few per lpf (None-Few); Nitrite,Urine Negative (Negative); Protein,Urine Negative (Neg-Trace); Specific Gravity,Urine 1.026 (1.010-1.025); Squamous Epithelial Cell,Urine Few per hpf (None-Few); Urobilinogen,Urine Normal (Normal)
[2022-01-13 06:00] LABS: Hematocrit 46.9 % (35.3-44.9); Hemoglobin 15.8 g/dL (11.5-15.4); Immature Granulocytes % 0.8 % (0-4); Mean Corpuscular HGB Conc 33.7 g/dL (31.6-35.5); Mean Corpuscular Hemoglobin 29.7 pg (28.0-33.3); Mean Corpuscular Volume 88.2 fL (83.0-100.0); Mean Platelet Volume 9.5 fL (9.4-12.4); Platelet Count 256 K/mcL (140-400); Red Blood Count 5.32 M/mcL (3.82-4.97); Red Cell Distribution Width 13.6 % (11.5-14.5); Segmented Neutrophils % 90.2 %; White Blood Count 13.3 K/mcL (4.3-11.1)
[2022-01-13 06:01] LABS: Basophils % 0.3 %; Eosinophils % 0.2 %; Lymphocytes # 0.5 K/mcL (0.6-4.6); Monocytes # 0.6 K/mcL (0.0-1.3); Monocytes % 4.5 %
[2022-01-13] MEDS ORDERED: cefTRIAXone 1,000 MG in 0.9 % Sodium Chloride 10 ML IVP ONE (06:13)
[2022-01-13 06:20] LABS: Alanine Aminotransferase 15 Units/L (7-52); Albumin 4.7 g/dL (3.5-5.7); Albumin/Globulin Ratio 1.4 (1.1-2.2); Alkaline Phosphatase 42 Units/L (34-104); Amylase 21 Units/L (29-103); Aspartate Amino Transferase 14 Units/L (13-39); BUN/Creatinine Ratio 18 (6-26); Bilirubin,Direct 0.1 mg/dL (0.0-0.2); Bilirubin,Indirect 0.5 mg/dL (0.0-1.0); Bilirubin,Total 0.6 mg/dL (0.3-1.0); Blood Urea Nitrogen 20 mg/dL (6-20); Calcium 9.7 mg/dL (8.6-10.3); Carbon Dioxide 22 mEq/L (23-29); Chloride 101 mEq/L (98-107); Globulin 3.3 g/dL (2.4-3.5); Glucose 282 mg/dL (70-105); Lipase 19 Units/L (11-82); Osmolality,Calculated 295 (280-300); Potassium 4.2 mEq/L (3.5-5.1); Sodium 136 mEq/L (136-145); eGFR For African Americans > 60 (> 60); eGFR For Non-African Americans 51 (> 60)
[2022-01-13] MEDS ORDERED: Acetaminophen 325 MG TABLET PO PRN (07:43)
[2022-01-13] MEDS ORDERED: Naloxone 0.4 MG/ML INJ IVP PRN (07:43)
[2022-01-13] MEDS ORDERED: Melatonin 3 MG TABLET PO PRN (07:43)
[2022-01-13] MEDS ORDERED: Ondansetron 4 MG/2 ML VIAL IVP PRN (07:43)
[2022-01-13] MEDS ORDERED: *HR* HYDROcodone/Acet 5/325 mg TABLET PO PRN (07:43)
[2022-01-13] MEDS ORDERED: *HR* HYDROmorphone (PF) 1 MG/ML SYRINGE IVP PRN (07:45)
[2022-01-13] MEDS ORDERED: 0.9 % Sodium Chloride 1,000 ML IVC SCH ×2 (07:45→11:31)
[2022-01-13] MEDS ORDERED: *HR* Rocuronium Bromide 50 MG/5 ML VIAL ONE (08:46)
[2022-01-13] MEDS ORDERED: *HR* FentaNYL (PF) 100 MCG/2 ML VIAL ONE (08:46)
[2022-01-13] MEDS ORDERED: *HR* Succinylcholine 200 MG/10 ML VIAL IVP ONE (08:46)
[2022-01-13] MEDS ORDERED: *HR* Propofol 200 MG/20 ML VIAL IVP ONE ×2 (08:46→09:52)
[2022-01-13] MEDS ORDERED: Lidocaine -MPF 2% 2 ML VIAL ONE (08:46)
[2022-01-13] MEDS ORDERED: Ondansetron 4 MG/2 ML VIAL ONE (08:46)
[2022-01-13] MEDS ORDERED: *HR* Midazolam HCl 2 MG/2 ML VIAL ONE (08:46)
[2022-01-13] MEDS ORDERED: Lidocaine HCL 4 ML Topical Solution (Laryng-O-Jet Kit Sterile Pak) TP ONE (08:46)
[2022-01-13] MEDS ORDERED: Iopamidol - 300 50 ML VIAL ONE (09:15)
[2022-01-13] MEDS ORDERED: Dexmedetomidine HCl 400 MCG/100 ML MLS IVC ONE (09:31)
[2022-01-13] MEDS ORDERED: Scopolamine Patch 1.5 MG PATCH.TD72 ONE (09:42)
[2022-01-13] MEDS ORDERED: *HR* FentaNYL (PF) 100 MCG/2 ML VIAL IVP PRN (09:52)
[2022-01-13] MEDS ORDERED: Promethazine 6.25 MG in Water for inj. (sterile) 20 ML IVPB PRN (09:54)
[2022-01-13] MEDS ORDERED: Hyoscyamine SL 0.125 MG TAB.SUBL SL ONE (10:50)
[2022-01-13] MEDS ORDERED: *HR* OxyCODONE/APAP 7.5/325 TABLET PO PRN (11:31)
[2022-01-13 12:28] VITALS: O2SAT 94
[2022-01-13] MEDS ORDERED: *HR* Heparin 5,000 UNIT/ML VIAL SQ SCH (14:00)
[2022-01-13 14:37] VITALS: BP 119/73; PULSE 109; TEMP 98.8
[2022-01-13] MEDS ORDERED: Hyoscyamine SL 0.125 MG TAB.SUBL SL SCH (17:00)
[2022-01-13] MEDS ORDERED: Omega-3/Dha/Epa/Fish Oil [Fish Oil 1,000 Mg Softgel] PO SCH (21:00)
[2022-01-14] MEDS ORDERED: Cyanocobalamin (B-12) 1,000 MCG TABLET PO SCH (09:00)
[2022-01-14] MEDS ORDERED: cefTRIAXone 1,000 MG in 0.9 % Sodium Chloride 10 ML IVPB SCH (09:00)
[2022-01-14] MEDS ORDERED: EZETIMIBE PO SCH (09:00)
[2022-01-14] MEDS ORDERED: [UNRECOGNIZED DRUG - OTHER] PO SCH (09:00)
[2022-01-14] MEDS ORDERED: Multivit/Ca/Min/Fe/FA 1 TAB TABLET PO SCH (09:00)
[2022-01-14] MEDS ORDERED: SIMVASTATIN PO SCH (09:00)
== END 2022-01-13 18:10 | disposition home or self-care (01) ==
LOC: EMEROOARM 04:57 → 3ANU 04:57
PROVIDERS: ADMIT Family Medicine; ATTEND Family Medicine